=== PATIENT | male | born 1970 | race Caucasian/White ===

== ENCOUNTER 2017-05-24 18:36 | Emergency (ER) | payer SELFPAY | END 2017-05-24 19:34 | disposition home or self-care (01) | LOC: D.ER 18:36 | DX: L03.115 Cellulitis of right lower limb (principal) ==

== ENCOUNTER 2017-05-27 14:36 | Emergency (ER) | payer SELFPAY ==
[2017-05-27 16:50] LABS: BASOPHILS 0.4 % (0-2); EOSINOPHILS 3.3 % (0-7); HEMATOCRIT 37.8 % (42.0-54.0); HEMOGLOBIN 12.4 g/dL (13.5-17.5); IMMATURE GRANULOCYTES 0.2 % (0-5); LYMPHOCYTES 26.6 % (15-50); MCHC 32.8 g/dL (31.0-37.0); MCV 88.5 fL (80.0-100.0); MEAN PLATELET VOLUME 8.7 fL (7.4-10.4); MONOCYTES 6.7 % (2-11); NEUTROPHILS 62.8 % (40-80); PLATELET COUNT 369 10x3/uL (130-400); RBC 4.27 10x6/uL (4.20-6.10); RDW 13.2 % (11.5-14.5); WBC 11.5 10x3/uL (4.8-10.8)
== END 2017-05-27 17:20 | disposition home or self-care (01) ==
LOC: D.ER 14:36
PROVIDERS: Nurse Practitioner Family
DX: L03.115 Cellulitis of right lower limb (principal)